=== PATIENT | male | born 1965 | race Hispanic/Latino ===

== ENCOUNTER → 2020-01-11 | Day surgery (SDC) | payer OTHER ==
[2020-01-06 13:43] LABS: BASOPHILS # (AUTO) 0.1 (0.0-0.1); BASOPHILS % 0.9 % (0.0-1.0); EOSINOPHILS # (AUTO) 0.3 (0.0-0.4); EOSINOPHILS % 3.6 % (0.0-6.0); HEMATOCRIT 46.4 % (38.2-49.6); HEMOGLOBIN 15.5 g/dL (14.0-18.0); LYMPHOCYTES # (AUTO) 1.6 (1.0-3.2); LYMPHOCYTES % 21.1 % (18.0-39.1); MEAN CORPUSCULAR HEMOGLOBIN 30.1 pg (28-32); MEAN CORPUSCULAR HGB CONC 33.4 g/dL (31-35); MEAN CORPUSCULAR VOLUME 90.1 fL (81-99); MONOCYTES # (AUTO) 0.6 (0.2-0.8); MONOCYTES % 7.2 % (4.4-11.3); NEUTROPHILS # (AUTO) 5.2 (2.1-6.9); NEUTROPHILS % 66.9 % (38.7-80.0); PLATELET COUNT 196 x10e3/uL (140-360); RED BLOOD COUNT 5.15 x10e6/uL (4.3-5.7); RED CELL DISTRIBUTION WIDTH 13.7 % (11.7-14.4)
[2020-01-06 13:54] LABS: INR 0.93; PROTHROMBIN TIME 12.9 seconds (11.9-14.5)
[2020-01-06 13:55] LABS: PARTIAL THROMBOPLASTIN TIME 26.9 seconds (23.8-35.5)
[2020-01-06 14:07] LABS: ALBUMIN/GLOBULIN RATIO 1.2 (0.8-2.0); ANION GAP 16.4 mmol/L (8-16); CALCIUM 9.3 mg/dL (8.4-10.2); CREATININE, SERUM 1.9 mg/dL (0.72-1.25); POTASSIUM 4.4 mmol/L (3.5-5.1)
[~2020-01-11] MED LIST: ACETAMINOPHEN/CODEINE 300MG - 30MG TAB ONE; B&O 60MG R/S 60 MG SUPP PR ONE; BUPIVACAINE 0.25% 30ML SDV ONE; CEFAZOLIN SOD 1 GM/NS 50ML 50 ML IV ONE; EPHEDRINE SULFATE INJ 50 MG/ML VIAL ONE; FENTANYL CITRATE/PF 100MCG/2 ML INJ ONE; GABAPENTIN400 MG PO; IOPAMIDOL 300MG/ML 50ML INFUS..BTL IV ONE; LEVOTHYROXINE50 MCG PO; LIDOCAINE 1% W/EPINEPHRINE 20 ML VIAL ONE; LIDOCAINE 2%/ EPINEPHRINE 20ML MDV ONE; LIDOCAINE HCL 2% JELLY 5 ML TUBE ONE; LIDOCAINE HCL 2% LOCAL INJ 5 ML SDV VIAL INJ ONE; MYCOPHENOLATE250 MG PO; NEOSTIGMINE 1 MG/ML 10ML VIAL ONE; NOVOLOG100 UNIT/1 SC; ONDANSETRON HCL INJ 2MG/ML 2ML 2 MG/ML VIAL ONE; PANTOPRAZOLE SO40 MG PO; PRAVACHOL20 MG PO; PROPOFOL IV EMULSION 10 MG/ML 20 ML VIAL ONE; SEVOFLURANE INHAL SOLN 250 ML PEN BTL ONE; TACROLIMUS1 MG PO; TRESIBA FL200 UNIT/1 SC; ULTRAM 50MG50 MG PO
[2020-01-11 09:50] VITALS: BP 131/89
--- NOTE | 2020-01-12 01:33 | Operative Report ---
DATE OF PROCEDURE: 01/11/2020 SURGEON: Christopher Burgess MD PREOPERATIVE DIAGNOSES: 1. Secondary phimosis. 2. Severe penile adhesions. 3. Urinary tract infections. POSTOPERATIVE DIAGNOSES: 1. Secondary phimosis. 2. Severe penile adhesions. 3. Urinary tract infections. 4. Severe panurethral stricture disease. OPERATION PERFORMED: 1. Complicated circumcision revision. 2. Complex repair to attempt to reestablish normal-appearing penile anatomy with some of total length up to 7.5 cm. 3. Cystourethroscopy with calibration and dilation of panurethral stricture disease (separate procedure performed for the urethral stricture disease). 4. Cystourethroscopy with bilateral ureteral catheterization and retrograde ureteropyelography (separate procedure performed for the urinary tract infections). ANESTHESIA: General anesthesia along with penile block performed for postoperative pain control and not required for the actual performance of the surgery done under general anesthesia. CLINICAL SUMMARY: Alan Nicole is a 54-year-old man, who underwent circumcision at [facility]. I am unsure what was the complicating factor and what his postoperative course was, but the patient has severe and dense penile adhesions with secondary phimosis. He is brought for the above procedures. He is aware of the risks of bleeding, infection, injury to adjacent structures, subideal cosmesis, need for additional procedures, and elected to proceed. OPERATIVE PROCEDURE IN DETAIL: Informed consent was verified. Alan Nicole was properly identified, taken to the operating room, placed on the operating table in supine position, and anesthesia was uneventfully begun. The patient's genitalia were then shaved, prepared, and draped in usual sterile fashion. The patient's previous inner foreskin remnant and circumcision incision were attached very densely to the glans penis. There was no choice, but to cut these adhesions away sharply utilizing tenotomies. An incision was necessitated into the glans penis and this was approximated with 4-0 chromic suture upon closure. Once we took down all the skin proximal to where the monahan of the penis would be, we prepared the penis with Betadine. We then continued the dissection to healthy appearing subcutaneous tissues well proximal of the glans penis. This tissue mobilization allowed for better cosmesis upon closure. Marcaine was then utilized to infiltrate subcutaneously circumferentially at the base of the penis as well as the region of the dorsal penile nerves. This was done for postoperative pain control and not required for the actual performance of surgery, which was done under general anesthesia. We then made an incision circumferentially just proximal to the circumcision scar. The location of the incision is pre-dictated to us by the prior [facility] incision. We copiously irrigated. We verified hemostasis. We then approximated the penile shaft skin where it would terminate if there was an inner foreskin remnant just proximal to the monahan of the glans penis. Once this was completed, the patient had a remarkably normal-appearing penile. The patient was carefully and gently repositioned in dorsal lithotomy position with all pressure points well padded. His genitalia were prepared and draped in usual sterile fashion. A 22.5-[place] cystoscope sheath with visual obturator in place could not be negotiated into the meatus. There was a tight stricture proximal to the meatus. This was dilated with sounds starting at 16-[place] and working our way up to 26-[place]. We negotiated cystoscope sheath into the urethra and guided it down the otherwise remarkable urethra for panurethral stricture disease with stricturing bands and also there appeared to be a false channel posteriorly between the 5 and 6 o'clock positions just distal to the external urinary sphincter. We dilated across all strictures with the visual obturator and a 22.5-[place] cystoscope sheath. We then entered the prostate bed, which was significant for early BPH. We went into the patient's bladder, where panendoscopy revealed mild trabeculations, but no tumors, no stones, and no diverticula, normally positioned configured ureteral orifices were identified. An 8-[place] catheter was used to cannulate each ureter and retrograde ureteropyelograms were performed. Interpretation of retrograde ureteropyelography, there were injections sites consistent with kyphoplasty with opacification of the patient's spine in 2 locations. The hollow structures of the kidneys and ureters were sharp and delicate without any filling defect. No evidence of obstruction, and there were no stones noted. Unobstructed drainage was observed fluoroscopically. The cystoscope was withdrawn utilizing a catheter guide for a 24-[place] Cruz catheter was placed thus ensuring the patient's urethra has been dilated to 24-[place]. It was irrigated to and fro to ensure it worked properly. Sterile dressings were applied of bacitracin ointment to the glans penis followed by Xeroform gauze, followed by loose-fitting Seda. A belladonna and opium suppository were placed revealing a 30 g prostate, smooth and non-fluctuant without any nodules. The patient was then uneventfully reversed from anesthesia and taken to recovery room in stable condition. There were no complications to the procedure. He tolerated the procedure well. We will plan to follow the patient up in the office in a couple weeks to remove his Cruz catheter. MD JOSAFAT Bonilla/YUNI /[id number]
== END | disposition home or self-care (01) ==
LOC: OR 05:23
PROVIDERS: ATTEND Urology
DX: N47.1 Phimosis (principal); N52.9 Male erectile dysfunction, unspecified; R81 Glycosuria; R80.9 Proteinuria, unspecified; R31.21 Asymptomatic microscopic hematuria; N47.5 Adhesions of prepuce and glans penis; E66.9 Obesity, unspecified; N47.6 Balanoposthitis; R35.1 Nocturia; N50.0 Atrophy of testis; Z01.810 Encounter for preprocedural cardiovascular examination; Z01.812 Encounter for preprocedural laboratory examination; Z20.828 Contact with and (suspected) exposure to other viral communicable diseases; N39.0 Urinary tract infection, site not specified; N35.919 Unspecified urethral stricture, male, unspecified site; Z68.31 Body mass index [BMI] 31.0-31.9, adult; Z94.4 Liver transplant status
CPT/HCPCS: 36415; 74420; 80053; 82948; 85025; 85610; 85730; 88304; 93005; C1758; J0690; J2001; J2405; J2710; J3010; U0002